=== PATIENT | female | born 1995 | race Caucasian/White ===

== ENCOUNTER 2016-08-17 13:40 | Emergency (ER) | payer OTHER ==
[~2016-08-17] VITALS: Ht 172.7 cm; Wt 63.5 kg
[2016-08-17 13:55] VITALS: BP 121/76
--- NOTE | 2016-08-17 15:14 | ED GI/GU/ABDOMINAL COMPLAINT ---
History of Present Illness General Chief Complaint: Abdominal Pain/Flank Pain Stated Complaint: "I HAVE REALLY BAD STOMACH PAIN" Source: patient Exam Limitations: no limitations Vital Signs & Intake/Output Vital Signs & Intake/Output Vital Signs Date Time Temp Pulse Resp B/P Pulse O2 O2 Flow FiO2 Ox Delivery Rate 08/17 1355 98.3 81 20 121/76 100 Room Air Allergies Coded Allergies: No Known Allergies (08/17/16) Reconcile Medications Dextroamphetamine/Amphetamine (Dextroamp-Amphet ER 20 MG Cap) 20 MG CAP.ER.24H 1 CAP PO QAM ADD/ADHD (Reported) Dextroamphetamine/Amphetamine (Dextroamp-Amphetamine 5 MG Tab) 5 MG TABLET 1 TAB PO 1500 ADD/ADHD (Reported) Etonogestrel (Nexplanon) 68 MG IMPLANT CONTROL (Reported) Triage Note: PT C/O ABDOMINAL PAIN AND LOWER ABDOMINAL CRAMPS X 1 HOUR AFTER HAVING SEX WITH BOYFRIEND. PT STATES SHE IS HAVING HOT FLASHES AND THE PAIN GETS WORSE WHEN SHE MOVES. +NAUSEA. LNBM 2 HOURS AGO Triage Nurses Notes Reviewed? yes ? N Is pt currently ? No HPI: Around 1 PM patient had sexual intercourse with her boyfriend and afterwards she went to urinate and had severe suprapubic pain radiating to both flanks. Pain has continued for last 2 hours. Worse with motion and palpation of the area. No vaginal discharge no bleeding. She used protection, she is on control and use a condom as well. No history of same. No treatment thus far. Pain is relieved when she is sitting and when she is still. Last menstrual period was 2 weeks ago and was normal. Past History Travel History Traveled to [place] past 21 day No Medical History Any Pertinent Medical History? none Surgical History Surgical History: none Psychosocial History What is your primary language Lao Tobacco Use: Never used ETOH Use: occasional use Illicit Drug Use: denies illicit drug use Family History Hx Contributory? No Review of Systems Review of Systems Constitutional: Reports: see HPI. EENTM: Reports: no symptoms. Respiratory: Reports: no symptoms. Cardiovascular: Reports: no symptoms. GI: Reports: see HPI. Genitourinary: Reports: no symptoms. Denies: discharge, dysuria, frequency, hematuria, hesitation, nocturia, pain, urgency. Musculoskeletal: Reports: no symptoms. Skin: Reports: no symptoms. Neurological/Psychological: Reports: no symptoms. Hematologic/Endocrine: Reports: no symptoms. Immunologic/Allergic: Reports: no symptoms. All Other Systems: Reviewed and Negative Physical Exam Physical Exam Gastrointestinal: normal bowel sounds, SEVERE TENDERNESS SUPRAPUBIC REGION, POSITIVE GUARDING. nO cva TENDERNESS NO FLANK PAIN Comments: Well-developed well-nourished no apparent distress. HEENT: Atraumatic, extraocular motion intact Neck: Supple, no lymphadenopathy Back: Nontender Respiratory: No respiratory distress clear to auscultation Heart: Regular rate and rhythm no murmur Extremities: No edema, full range of motion Neuro: Alert and oriented x3 Psych: Mood affect normal, normal memory normal judgment. Skin: Warm and dry, no rash on exposed skin Core Measures ACS in differential dx? No Severe Sepsis Present: No Septic Shock Present: No Progress Differential Diagnosis: AAA, AMI, appendicitis, biliary colic, bowel obstruction , colon cancer, cholecystitis, diverticulitis, ectopic , endometritis, esophageal varices, gastritis, hepatitis, hernia, hemorrhoids, ischemic bowel, inflamm bowel dis, intrauterine , kidney stone, Tri-Rosana tear, ovarian cyst, ovarian torsion, pancreatitis, PID/cervicitis, peptic ulcer, PUD/ GERD, perforated viscous, SBO, threatened AB, UTI/pyelo Plan of Care: Orders Procedure Date/time Status URINE 08/17 150 Complete URINALYSIS 08/17 150 Complete Laboratory Tests 08/17/16 1519: Urine Color YEL, Urine Clarity CLEAR, Urine pH 6.0, Ur Specific Parish >= 1.030 , Urine Protein TRACE H, Urine Ketones NEG, Urine Nitrite NEG, Urine Bilirubin NEG, Urine Urobilinogen 0.2, Ur Leukocyte Esterase NEG, Ur Microscopic SEDIMENT EXAMINED, Urine RBC RARE, Urine WBC RARE, Ur Epithelial Cells FEW, Urine Mucus MANY H, Urine Hemoglobin NEG, Urine Glucose NEG, Urine Test NEGATIVE Diagnostic Imaging: Viewed by Me: Ultrasound. Discussed w/RAD: Ultrasound. Radiology Impression: PATIENT: CHARLA HAWKINS PRESENT AGE: 21 PATIENT ACCOUNT NO: [id number] : 93 LOCATION: [facility] ORDERING PHYSICIAN: KIANA COVINGTON SERVICE DATE: 08/17/16-150 EXAM TYPE : US - US-TRANSVAGINAL EXAMINATIONS: ULTRASOUND PELVIC, COMPLETE AND DOPPLER INTERROGATION CLINICAL INFORMATION: Dyspareunia. Pain. COMPARISON: None. TECHNIQUE: Transabdominal and transvaginal imaging was performed. Transvaginal imaging was performed for further evaluation of the endometrium and adnexa. Doppler interrogation spectral analysis was performed. FINDINGS: The uterus is of normal size and echogenicity measuring 6.2 x 7.2 x 5.5 cm. A regular homogeneous endometrium is identified measuring 0.4 cm. The cervical length is 3.3 cm. The right ovary measures 4.9 x 2.6 x 3.7 cm for a volume of 24.8 cc. This measurement includes an approximately 2.4 cm complex cystic focus with internal septations. Normal arterial and venous flow is present to the right ovary. The left ovary is not identified. There is a moderate amount of pelvic free fluid. IMPRESSION: 2.4 cm complex right ovarian cystic focus with internal septations. This is nonspecific, but could correspond to a hemorrhagic cyst. Recommendation is for a follow-up pelvic ultrasound in 6 or 10 weeks to assure resolution of this appearance. Left ovary not identified. Moderate amount of pelvic free fluid. DICTATED BY: CLARI YODER MD DATE/TIME DICTATED:08/17/16 Initial ED EKG: none Comments: Patient given Toradol 30 mg IM. Will sent for ultrasound. Ultrasound report shows right-sided ovarian cyst, questionable hemorrhagic with moderate free fluid. Patient reevaluated and her symptoms have resolved. She does not have any more pain. Likely she had a right-sided ovarian cyst that ruptured. Currently she is feeling better, recommends following up with [facility] or return with worsening symptoms. Departure Departure Disposition: HOME OR SELF CARE Condition: Stable Clinical Impression Primary Impression: Ruptured ovarian cyst Referrals: MAURO MENENDEZ (PCP/Family) Additional Instructions: Please follow-up with your [facility] doctor in approximately 6 weeks for repeat ultrasound to make sure you're right ovarian cyst has resolved. Motrin and Tylenol as needed for pain, avoid strenuous physical activity Return with worsening abdominal pain, nausea, vomiting, vaginal discharge or bleeding or feeling lightheaded or dizzy or as if you're going to pass out. Departure Forms: Customer Survey General Discharge Information
[2016-08-17] MEDS ORDERED: NEXPLANON68 M1 (15:37)
[2016-08-17] MEDS ORDERED: DEXTROAMP-AMPHE20 M1 PO (15:37)
[2016-08-17] MEDS ORDERED: DEXTROAMP-AMPHET5 MG PO (15:37)
--- NOTE | 2016-08-17 17:18 | ULTRASOUND REPORT ---
EXAMINATIONS: ULTRASOUND PELVIC, COMPLETE AND DOPPLER INTERROGATION CLINICAL INFORMATION: Dyspareunia. Pain. COMPARISON: None. TECHNIQUE: Transabdominal and transvaginal imaging was performed. Transvaginal imaging was performed for further evaluation of the endometrium and adnexa. Doppler interrogation spectral analysis was performed. FINDINGS: The uterus is of normal size and echogenicity measuring 6.2 x 7.2 x 5.5 cm. A regular homogeneous endometrium is identified measuring 0.4 cm. The cervical length is 3.3 cm. The right ovary measures 4.9 x 2.6 x 3.7 cm for a volume of 24.8 cc. This measurement includes an approximately 2.4 cm complex cystic focus with internal septations. Normal arterial and venous flow is present to the right ovary. The left ovary is not identified. There is a moderate amount of pelvic free fluid. IMPRESSION: 2.4 cm complex right ovarian cystic focus with internal septations. This is nonspecific, but could correspond to a hemorrhagic cyst. Recommendation is for a follow-up pelvic ultrasound in 6 or 10 weeks to assure resolution of this appearance. Left ovary not identified. Moderate amount of pelvic free fluid.
== END 2016-08-17 18:22 ==
LOC: ERH 13:40
DX: N83.201 Unspecified ovarian cyst, right side (principal)
CPT/HCPCS: 81001; 81025; 96372; J1885

== ENCOUNTER 2017-09-24 22:07 | Emergency (ER) | payer OTHER ==
[~2017-09-24 22:07] MED LIST: DEXTROAMP-AMPHE20 M1 PO; DEXTROAMP-AMPHET5 MG PO; NEXPLANON68 M1
--- NOTE | 2017-09-24 22:18 | ED GENERAL ADULT ---
History of Present Illness General Chief Complaint: Headache Stated Complaint: HEADACHE Source: patient Exam Limitations: no limitations Vital Signs & Intake/Output Vital Signs & Intake/Output Vital Signs Date Time Temp Pulse Resp B/P B/P Pulse O2 O2 Flow FiO2 Mean Ox Delivery Rate 09/25 0009 97.8 71 18 111/77 100 Room Air 09/24 2216 Room Air 09/24 2215 98.4 68 16 97 Room Air ED Intake and Output 09/25 0000 09/24 1200 Intake Total 1100 Output Total Balance 1100 Intake, IV 1100 Allergies Coded Allergies: No Known Allergies (08/17/16) Reconcile Medications Dextroamphetamine/Amphetamine (Dextroamp-Amphet ER 20 MG Cap) 20 MG CAP.ER.24H 1 CAP PO QAM ADD/ADHD (Reported) Dextroamphetamine/Amphetamine (Dextroamp-Amphetamine 5 MG Tab) 5 MG TABLET 1 TAB PO 1500 ADD/ADHD (Reported) Etonogestrel (Nexplanon) 68 MG IMPLANT CONTROL (Reported) Naproxen (Naprosyn) 500 MG TABLET 1 TAB PO BID PRN headache Naproxen (Naprosyn) 500 MG TABLET 1 TAB PO BID PRN headache Triage Note: PT BIBA FROM HOME C/O R SIDED HEADACHE +PHOTOSENSITIVITY, N/V SINCE 5PM. 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 ARRIVES TEARFUL. IV ESTABLISHED BY EMS #[id number]. Triage Nurses Notes Reviewed? yes Onset: Gradual Duration: hour(s): Timing: constant HPI: 22 y/o female with h/o migraines and anxiety presenting with right sided throbbing headache x5 hours. Pain is associated with photophobia, phonophobia, nausea, and vomiting. Reports a lot of recent stress, had finals today, and has not eaten anything today. Is on propranolol for migraine PPX, but has not abortive meds. Denies head trauma. Not on any AC. No fevers or neck stiffness. (Mariel Cortez) Past History Travel History Traveled to [place] past 21 day No Medical History Any Pertinent Medical History? see below for history Neurological: migraine Surgical History Surgical History: none Psychosocial History What is your primary language Greenlandic Family History Hx Contributory? No (Mariel Cortez) Review of Systems Review of Systems Constitutional: Reports: no symptoms. EENTM: Reports: no symptoms. Respiratory: Reports: no symptoms. Cardiovascular: Reports: no symptoms. GI: Reports: nausea, vomiting. Genitourinary: Reports: no symptoms. Musculoskeletal: Reports: no symptoms. Skin: Reports: no symptoms. Neurological/Psychological: Reports: headache. Hematologic/Endocrine: Reports: no symptoms. Immunologic/Allergic: Reports: no symptoms. (Mariel Cortez) Physical Exam Physical Exam General Appearance: well developed/nourished, alert, moderate distress, tearful Head: atraumatic, normal appearance Eyes: Bilateral: normal appearance, PERRL, EOMI. Ears, Nose, Throat: normal ENT inspection Neck: normal inspection, supple Respiratory: normal breath sounds, lungs clear Cardiovascular: regular rate/rhythm Gastrointestinal: soft, non-tender Back: normal inspection Extremities: normal inspection Neurologic/Psych: no motor/sensory deficits, awake, alert, oriented x 3, normal gait, normal mood/affect, supervisor grower II-XII nml as tested, cerebellar function intact Skin: intact, normal color, warm/dry Core Measures ACS in differential dx? No CVA/TIA Diagnosis: No Sepsis Present: No Sepsis Focused Exam Completed? No (Mariel Cortez) Progress Differential Diagnoses I considered the following diagnoses in my evaluation of the patient: [Likely with migraine,also considered tension headache, low concern for meningitis vs ICH vs pseudotumor cerebri] Plan of Care: Current Medications Sig/Franny Start time Last Medication Dose Stop Time Status Admin Magnesium Sulfate 1 GM ONCE ONE 09/24 2315 AC 09/24 (Mag Sulfate in D5) 09/25 0114 2326 Dextrose/Water 100 ML (D5W) Pt reports moderate pain relief after NS bolus, reglan, toradol. Required additional of magnesium and morphine and reports additional improvement in headache. Now with only mild headache and requesting to be discharged home. Parents at bedside, and parents and pt were both counseled on supportive care and strict return precautions. Given rx naproxen. Will f/u with PMD. Initial ED EKG: none (Mariel Cortez) Departure Departure Disposition: HOME OR SELF CARE Condition: Stable Clinical Impression Primary Impression: Headache Referrals: Gail Solis (PCP/Family) Additional Instructions: Take naproxen as needed for pain. Follow up with your primary care provider for re-evaluation. Return to the emergency department for any new or worsening symptoms. Departure Forms: Customer Survey General Discharge Information Prescriptions: Current Visit Scripts Naproxen (Naprosyn) 1 TAB PO BID PRN headache #60 TAB Naproxen (Naprosyn) 1 TAB PO BID PRN headache #60 TAB (Mariel Cortez) PA/LOGISTIC SPECIALIST Co-Sign Statement Statement: ED Attending supervision documentation- [] I saw and evaluated the patient. I have also reviewed all the pertinent lab results and diagnostic results. I agree with the findings and the plan of care as documented in the PA's/LOGISTIC SPECIALIST's documentation. [X] I have reviewed the ED Record and agree with the PA's/LOGISTIC SPECIALIST's documentation. [] Additions or exceptions (if any) to the PAs/LOGISTIC SPECIALIST's note and plan are summarized below: [] (Margo SRIVASTAVA,Cortez Winston) Critical Care Note Critical Care Note Critical Care Time: non-applicable (Mariel Cortez)
[2017-09-25 00:09] VITALS: BP 111/77
[2017-09-25] MEDS ORDERED: NAPROSYN500 M1 PO ×2 (00:21→00:46)
== END 2017-09-25 00:46 ==
LOC: ERH 22:07
DX: R51 Headache (principal)
CPT/HCPCS: 96374; 96375; J1885; J2765